=== PATIENT | male | born 1975 | race African-American/Black ===

== ENCOUNTER 2017-10-22 19:01 | Inpatient (IN) | payer SELFPAY ==
[~2017-10-22] VITALS: Ht 177.8 cm; Wt 61.4 kg
[~2017-10-22 19:01] MED LIST: AMOX250C4 PO; OLAN5TAB40 PO; PROZ10 PO
[2017-10-22 21:32] LABS: BASOPHILS % (AUTO) 1.1 % (0.0-2.0); EOSINOPHILS % (AUTO) 1.3 % (1.0-6.0); HEMATOCRIT 42.3 % (41-53); HEMOGLOBIN 14.7 g/dL (13.5-17.5); LYMPHOCYTES % (AUTO) 29.2 % (22.0-44.0); MEAN CORPUSCULAR HEMOGLOBIN 31.8 pg (26.0-34.0); MEAN CORPUSCULAR HGB CONC 34.8 G/dL (31.0-37.0); MEAN CORPUSCULAR VOLUME 92 fL (80-100); MONOCYTES # (AUTO) 0.9 K/uL (0.1-1.0); MONOCYTES % (AUTO) 13.6 % (2.0-9.0); NEUTROPHILS # (AUTO) 3.8 K/uL (1.8-7.7); NEUTROPHILS % (AUTO) 54.8 % (40.0-70.0); PLATELET COUNT (AUTO) 246 K/uL (150-450); RED BLOOD CELL COUNT(AUTO) 4.62 MIL/uL (4.50-5.90); RED CELL DISTRIBUTION WIDTH 14.1 % (11.5-14.5)
[2017-10-22 21:50] LABS: ANION GAP 11 mmol/L (8-16); CALCIUM, TOTAL 8.4 mg/dL (8.8-10.5); CARBON DIOXIDE 25 mmol/L (22-29); CHLORIDE 97 mmol/L (98-107); CREATININE 0.95 mg/dL (0.60-1.30); GLOMERULAR FILTR. RATE CALC > 60 mL/min (>60); GLUCOSE,RANDOM 88 mg/dL (70-110); POTASSIUM 4.1 mmol/L (3.5-5.1); SODIUM SERUM 133 mmol/L (136-145); UREA NITROGEN, BLOOD 17 mg/dL (7-18)
[2017-10-22 21:57] LABS: ALANINE AMINOTRANSFERASE 65 U/L (12-78); ALBUMIN 4.2 g/dL (3.4-5.0); ALKALINE PHOSPHATASE 69 U/L (46-116); ASPARTATE AMINOTRANSFERASE 169 U/L (15-37); BILIRUBIN,TOTAL 1.3 mg/dL (0.1-1.0); TOTAL PROTEIN, SERUM 7.5 g/dL (6.4-8.2)
[2017-10-22] MEDS ORDERED: ZOLPIDEM TARTRATE 10 MG TABLET PO PRN (23:00)
[2017-10-22] MEDS ORDERED: OLANZapine 5 MG RAPDIS TABLET PO PRN (23:00)
[2017-10-22] MEDS ORDERED: LORazepam 2 MG TABLET PO PRN (23:00)
[2017-10-22] MEDS ORDERED: OLANZapine 5 MG TABLET PO ONE (23:15)
[2017-10-22] MEDS ORDERED: PANTOPRAZOLE SODIUM 40 MG DR TABLET PO ONE (23:15)
[2017-10-22] MEDS ORDERED: DiphenhydrAMINE HCL 25 MG CAPSULE PO ONE (23:15)
[2017-10-22] MEDS ORDERED: LORazepam 2 MG TABLET PO ONE (23:15)
[2017-10-23 00:32] LABS: CHOL/HDL RATIO 2.4 (4.2-7.3); CHOLESTEROL 194 mg/dL (131-200); HDL CHOLESTEROL 80 mg/dL (40-60); LDL CHOL (CALC.) 106 mg/dL (0-130); TRIGLYCERIDES 39 mg/dL (15-150)
[2017-10-23 09:43] VITALS: BP 92/54
[2017-10-23] MEDS ORDERED: ACETAMINOPHEN 325 MG TABLET PO PRN (12:15)
[2017-10-23] MEDS ORDERED: HydrOXYzine PAMOATE 50 MG CAPSULE PO PRN (12:15)
[2017-10-23] MEDS ORDERED: LOPERAMIDE HCL 2 MG CAPSULE PO PRN (12:15)
[2017-10-23] MEDS ORDERED: TUBERCULIN, PURIFIED PROTEIN DERIVATIVE 5 TU/0.1 ML SYG ID ONE (12:15)
[2017-10-23] MEDS ORDERED: PROMETHAZINE HCL 25 MG TABLET PO PRN (12:15)
[2017-10-23] MEDS ORDERED: MAGNESIUM HYDROXIDE SUSPENSION 30 ML UDCUP PO PRN (12:15)
[2017-10-23] MEDS ORDERED: GuaiFENesin/D-METHORPHAN [SUGAR-FREE] 200-20MG/10 ML SYRUP UDCUP PO PRN (12:15)
[2017-10-23] MEDS ORDERED: MAG HYDROX/AL HYDROX/SIMETH ES 30 ML SUSPENSION UDCUP PO PRN (12:15)
[2017-10-23 20:26] VITALS: BP 104/72
[2017-10-23] MEDS ORDERED: OLANZapine 10 MG RAPDIS TABLET PO SCH (21:00)
[2017-10-23] MEDS: THIAMINE HCL 100 MG TABLET PO SCH (21:25)
[2017-10-23] MEDS: GABAPENTIN 100 MG CAPSULE PO SCH (21:25)
[2017-10-24 08:18] VITALS: BP 109/63
[2017-10-24] MEDS ORDERED: FLUoxetine HCL 20 MG CAPSULE PO SCH (09:00)
[2017-10-24] MEDS ORDERED: DULoxetine HCL 20 MG CAPSULE PO SCH (09:00)
[2017-10-24] MEDS: MULTIVITAMINS WITH MINERALS, THERAPEUTIC TABLET PO SCH (09:28)
[2017-10-24] MEDS: GABAPENTIN 100 MG CAPSULE PO SCH ×4 (09:28→21:13)
[2017-10-24] MEDS: FOLIC ACID 1 MG TABLET PO SCH (09:28)
[2017-10-24] MEDS: NALTREXONE HCL 50 MG TABLET PO SCH (09:28)
[2017-10-24] MEDS: THIAMINE HCL 100 MG TABLET PO SCH ×2 (09:32→21:14)
[2017-10-24] MEDS ORDERED: DULO30CA2 PO (12:54)
[2017-10-24] MEDS ORDERED: GABA-529 PO (12:54)
[2017-10-24] MEDS ORDERED: OLAN5TAB30 PO (12:54)
[2017-10-24 18:17] VITALS: BP 136/70
[2017-10-24 20:05] VITALS: BP 101/66
[2017-10-24] MEDS ORDERED: OLANZapine 5 MG RAPDIS TABLET PO SCH (21:00)
[2017-10-25] MEDS: THIAMINE HCL 100 MG TABLET PO SCH (08:53)
[2017-10-25] MEDS: FOLIC ACID 1 MG TABLET PO SCH (08:53)
[2017-10-25] MEDS: NALTREXONE HCL 50 MG TABLET PO SCH (08:53)
[2017-10-25] MEDS: GABAPENTIN 100 MG CAPSULE PO SCH ×2 (08:53→12:40)
[2017-10-25] MEDS: MULTIVITAMINS WITH MINERALS, THERAPEUTIC TABLET PO SCH (08:53)
[2017-10-25] MEDS ORDERED: DULoxetine HCL 30 MG CAPSULE PO SCH (09:00)
[2017-10-25 09:57] VITALS: BP 97/58
[2017-10-25] MEDS ORDERED: NALT50TA6 PO (10:04)
== END 2017-10-25 13:30 | disposition home or self-care (01) | DRG 885 ==
LOC: EMS 19:02 → AHU 10-23 00:30
PROVIDERS: ADMIT Psychiatry & Neurology Psychiatry; ATTEND Psychiatry & Neurology Psychiatry
DX: F25.9 Schizoaffective disorder, unspecified (principal); R45.851 Suicidal ideations; F12.90 Cannabis use, unspecified, uncomplicated; F15.10 Other stimulant abuse, uncomplicated; F32.9 Major depressive disorder, single episode, unspecified; G89.4 Chronic pain syndrome; M25.561 Pain in right knee; F10.10 Alcohol abuse, uncomplicated; M25.562 Pain in left knee; F17.210 Nicotine dependence, cigarettes, uncomplicated; Y90.1 Blood alcohol level of 20-39 mg/100 ml; M54.9 Dorsalgia, unspecified; K70.30 Alcoholic cirrhosis of liver without ascites; M06.9 Rheumatoid arthritis, unspecified; S00.83XA Contusion of other part of head, initial encounter; Z59.0 Homelessness; Z65.3 Problems related to other legal circumstances; Z81.8 Family history of other mental and behavioral disorders; Z91.19 Patient's noncompliance with other medical treatment and regimen
CPT/HCPCS: 93005; 99285; G0480

== ENCOUNTER 2019-07-04 09:30 | Emergency (ER) | payer MEDICAID, OTHER ==
[~2019-07-04] VITALS: Ht 175.3 cm; Wt 61.4 kg
[~2019-07-04 09:30] MED LIST changes: -AMOX250C4 PO; +DULO30CA2 PO; +GABA-529 PO; +NALT50TA6 PO; +OLAN5TAB30 PO; -OLAN5TAB40 PO; -PROZ10 PO
[2019-07-04 10:04] VITALS: BP 116/74
[2019-07-04] MEDS: SULFAMETHOX/TRIMETH DS 800-160 MG/TABLET PO ONE (10:46)
[2019-07-04] MEDS: CEPHALEXIN MONOHYDRATE 500 MG CAPSULE PO ONE (10:46)
[2019-07-04] MEDS: KETOROLAC TROMETHAMINE 30 MG/ML VIAL IM ONE (10:47)
[2019-07-04] MEDS: MUPIROCIN CALCIUM 2% 22 GM OINTMENT TP ONE (11:42)
== END 2019-07-04 11:52 | disposition home or self-care (01) ==
LOC: EMS 09:35
DX: L03.312 Cellulitis of back [any part except buttock and flank] (principal); F19.10 Other psychoactive substance abuse, uncomplicated; M06.9 Rheumatoid arthritis, unspecified; F32.9 Major depressive disorder, single episode, unspecified; F15.90 Other stimulant use, unspecified, uncomplicated; F12.90 Cannabis use, unspecified, uncomplicated; F17.210 Nicotine dependence, cigarettes, uncomplicated; Z59.0 Homelessness; Z79.899 Other long term (current) drug therapy; Z98.890 Other specified postprocedural states
CPT/HCPCS: 96372; 99284; 99406; J1885

== ENCOUNTER 2020-01-04 00:11 | Emergency (ER) | payer OTHER ==
[~2020-01-04] VITALS: Ht 177.8 cm; Wt 61.4 kg
[~2020-01-04 00:11] MED LIST changes: -DULO30CA2 PO; +DULO30CA96 PO
[2020-01-04] MEDS ORDERED: TETRACAINE HCL VISCOUS 0.5% 5 ML OPHTHALMIC SOLUTION OU ONE (00:45)
[2020-01-04] MEDS ORDERED: FLUORESCEIN SODIUM 1 MG STRIP OU ONE (00:45)
[2020-01-04] MEDS ORDERED: PROPARACAINE HCL 0.5% 15 ML OPHTHALMIC SOLUTION ONE (01:09)
[2020-01-04] MEDS ORDERED: PROPARACAINE HCL 0.5% 15 ML OPHTHALMIC SOLUTION OS ONE (01:15)
[2020-01-04] MEDS ORDERED: PROPARACAINE HCL 0.5% 15 ML OPHTHALMIC SOLUTION OU ONE (01:15)
[2020-01-04] MEDS ORDERED: LIDOCAINE/PF 1% 2 ML VIAL IM ONE (01:30)
[2020-01-04] MEDS ORDERED: AZITHROMYCIN 500 MG TABLET PO ONE (01:30)
[2020-01-04] MEDS ORDERED: CefTRIAXone SODIUM 1 GM/VIAL IM ONE (01:30)
[2020-01-04] MEDS ORDERED: OFLOXACIN 0.3% 5 ML OPHTHALMIC SOLUTION OS ONE (01:30)
[2020-01-04 02:52] VITALS: BP 129/77
== END 2020-01-04 03:12 | disposition home or self-care (01) ==
LOC: EMS 00:11
DX: S05.02XA Injury of conjunctiva and corneal abrasion without foreign body, left eye, initial encounter (principal); J45.909 Unspecified asthma, uncomplicated; F32.9 Major depressive disorder, single episode, unspecified; F12.90 Cannabis use, unspecified, uncomplicated; F15.90 Other stimulant use, unspecified, uncomplicated; F17.210 Nicotine dependence, cigarettes, uncomplicated; Z79.899 Other long term (current) drug therapy; X58.XXXA Exposure to other specified factors, initial encounter; Y93.89 Activity, other specified; Y92.89 Other specified places as the place of occurrence of the external cause; Y99.8 Other external cause status
CPT/HCPCS: 96372; 99284; J0696; J3490

== ENCOUNTER 2022-04-29 15:56 | Emergency (ER) | payer OTHER ==
[~2022-04-29] VITALS: Ht 177.8 cm; Wt 61.4 kg
[~2022-04-29 15:56] MED LIST changes: +DOXY-354 PO; -DULO30CA96 PO; +GABA-1181 PO; -GABA-529 PO; +IBUP-1493 PO; -NALT50TA6 PO; -OLAN5TAB30 PO
[2022-04-29 16:23] VITALS: BP 113/69
== END 2022-04-29 17:15 | disposition home or self-care (01) ==
LOC: EMS 16:04
DX: L02.414 Cutaneous abscess of left upper limb (principal); M19.90 Unspecified osteoarthritis, unspecified site; J45.909 Unspecified asthma, uncomplicated; F32.A Depression, unspecified; F17.210 Nicotine dependence, cigarettes, uncomplicated; F12.90 Cannabis use, unspecified, uncomplicated; F15.90 Other stimulant use, unspecified, uncomplicated; Z98.890 Other specified postprocedural states
CPT/HCPCS: 99283; Z7502